=== PATIENT | female | born 1980 | race Caucasian/White ===

== ENCOUNTER → 2021-02-13 16:07 | Outpatient (CLI) | payer OTHER, SELFPAY ==
--- NOTE | ~2021-02-13 | MM_ITS ---
EXAMINATION: MM screening [facility] HISTORY: Screening mammogram TECHNIQUE: Craniocaudal and mediolateral oblique 3-D tomosynthesis images were obtained and synthetic 2-D images were generated. CAD analysis was submitted and interpreted. COMPARISON: 03/06/2013 diagnostic right mammogram and right breast ultrasound examination BREAST PARENCHYMAL COMPOSITION: There are scattered areas of fibroglandular density. FINDINGS: There is no evidence of suspicious mass, calcification, or architectural distortion to sugg est malignancy in either breast. There has been no suspicious interval change. IMPRESSION: 1. No mammographic evidence of malignancy. 2. Recommend routine screening mammography in one year. BI-RADS Category 1: Negative Reviewed, dictated and finalized at location A.
== END ==
PROVIDERS: Visit Provider Nurse Practitioner
DX: Z12.31 Encounter for screening mammogram for malignant neoplasm of breast (principal)
CPT/HCPCS: 77063; 77067

== ENCOUNTER 2021-04-24 14:49 | Outpatient (CLI) | payer OTHER, SELFPAY ==
--- NOTE | 2021-04-24 15:17 | ECG_ITS ---
Measurements Intervals Cook Rate: 65 P: 39 NM: 119 QRS: 41 QRSD: 80 T: -9 QT: 383 QTc: 401 Interpretive Statements SINUS RHYTHM WITH SHORT NM INTERVAL MINIMAL Q WAVES- INFERIOR LEADS NONSPECIFIC T-WAVE ABNORMALITY- ANT/INF LEADS BASELINE ARTIFACT- I, II, AVR, AVF BORDERLINE ECG Electronically Signed On 04-24-2021 15:42:02 [employer] by Teo Jessica D.O.
[2021-04-24 16:02] LABS: Anion Gap 9 mmol/L (8-16); Blood Urea Nitrogen 14 mg/dL (7-17); Carbon Dioxide 33 mmol/L (22-30); Chloride 98 mmol/L (98-107); Estimated Glomerular Filt Rate > 60; Glucose 124 mg/dL (65-110); Potassium 3.6 mmol/L (3.4-5.0); Sodium 140 mmol/L (137-145)
== END 2021-04-24 14:50 | disposition home or self-care (01) ==
PROVIDERS: Anesthesiology; PCP Nurse Practitioner; Visit Provider Surgery Plastic and Reconstructive Surgery
DX: Z01.818 Encounter for other preprocedural examination (principal); E78.5 Hyperlipidemia, unspecified; Z79.899 Other long term (current) drug therapy
CPT/HCPCS: 36415; 80048; 93005

== ENCOUNTER → 2021-04-25 00:32 | Outpatient (CLI) | payer OTHER, SELFPAY ==
[2021-04-25 17:30] LABS: SARS-CoV-2 RNA PCR Negative
== END ==
PROVIDERS: PCP Nurse Practitioner; Visit Provider Surgery Plastic and Reconstructive Surgery
DX: Z01.812 Encounter for preprocedural laboratory examination (principal); Z20.822 Contact with and (suspected) exposure to COVID-19
CPT/HCPCS: C9803; U0003; U0005

== ENCOUNTER 2021-04-28 01:14 | Day surgery (SDC) | payer OTHER, SELFPAY ==
[2021-04-23 11:28] VITALS: BMI 28.1
--- NOTE | 2021-04-23 11:44 | PC.NURSE ---
Report to the Outpatient Waiting Room, entrance under the green pavilion located off [facility], at time 11:30 on date 04/28/21. OR Time: 1:30. - You and your visitor will be asked a series of questions to screen for COVID 19 for your protection. - A mask is required within the hospital. - Only one visitor is allowed at this time. Patient visitors will be guided where to wait when not with patient. Preoperative COVID Testing Requirements: No COVID Test needed if: (proof is required; if not received patient will have Rapid Test prior to entry) - Patient has received COVID Vaccine at least 14 days prior to procedure date or - Patient has positive COVID test result within last 90 days of surgery date. COVID Test needed if above criteria is not met If not COVID vaccinated a COVID test must be conducted within 72 hours of surgery and patient is asked to isolate self from time of testing until procedure. You will go to the [email or web address] for your COVID testing. The [email or web address] is located at the corner of [address] [facility]. COVID TEST 04/25 AT 8:30 You will only be called if COVID results are positive and your surgeon may reschedule your elective surgery date. Patients may have clear liquids (water, carbonated beverages, clear teas, apple juice) until 3 hours prior to surgery with a maximum of 20 ounces. - No food from midnight until time of surgery - Infants may have breast milk until 4 hours before surgery, infant formula 6 hours prior to surgery. - Children will be allowed to drink immediately following surgery. If applicable, please bring a bottle or sippy cup to assist with drinking. Juice, water, soda, and popsicles are readily available. For infants on formula, please bring formula the day of surgery. Pacifiers are allowed. Take the following medications with a SIP of water the morning of surgery: N/A Medications to discontinue per physician: N/A Date to take last dose: N/A Please no make-up, nail malay, hairspray, perfume, deodorant, or body powder the day of surgery. No jewelry (including any body piercings) or valuables the day of surgery, leave them at home. Please take a shower or bath the night before, or the morning of, surgery with an antibacterial soap. Wear comfortable, loose fitting clothing. Children are encouraged to wear pajamas. - Jewelry must be removed prior to entering the operating room. Rings and piercings that are not removed may be cut off. - The hospital will not accept responsibility for valuables. - Please leave all valuables, including medications, at home the day of surgery. If you are going home after surgery, a licensed otr driver must drive you home. - NO public transportation without another adult. - We recommend that an adult stay with you for 24 hours following discharge. - We also recommend that you do not drive, make important decision, drink alcoholic beverages, or take any drugs that were not prescribed by your health care provider for at least 24 hours after your discharge time. For Pediatric surgeries, we recommend two adults accompany the child home (only one inside the building at this time). Follow any additional instructions given to you from your surgeon. Telephone instructions given to SELENA BLACKBURN and asked if any additional questions and then verbalized understanding. Patient advised to call surgeon office or pre surgery nurse liaison [phone] if any additional questions.
[2021-04-28] VITALS (9 sets, daily range): BP systolic 102–140; BP diastolic 65–93; PULSE 68–91; RESP 10–18; TEMP 35.9–36.6; O2SAT 94–100
--- NOTE | 2021-04-28 11:49 | WPDANESEPPF ---
Anes - Initial Pre Proc Eval Procedure: Operation Date: 04/28/21 13:30 Proposed Procedures p Bilateral Breast Reduction - Doug Ennis MD Date/Time: 04/28/21 11:49 Surgeon: Doug Ennis MD Pre Op Diagnosis: macromastia Patient Data Age: 41 Gender: F Height: 1.6 m Weight: 72.12 kg Allergies Allergy/AdvReac Type Severity Reaction Status Date / Time No Known Allergies Allergy Unknown Verified 04/28/21 11:42 Home Medications Medication Instructions Recorded Confirmed Type atorvastatin 20 mg tablet 20 mg PO DAILY 12/29/20 04/23/21 History hydrochlorothiazide 25 mg tablet 25 mg PO DAILY 12/29/20 04/28/21 History hydrocodone 5 mg-acetaminophen 325 1 tablet PO Q6H PRN #15 tablet 04/13/21 04/23/21 Rx mg tablet ondansetron HCl 4 mg tablet 4 mg PO Q6H PRN #30 tablet 04/13/21 04/23/21 Rx Laboratory Tests 04/28/21 11:39 Cotinine Pending Patient hx anesthesia problems: none Family hx anesthesia problems: none Results Review: All pre-operative results and documents have been reviewed as part of the pre-operative evaluation. [facility] Past Medical History Medical History (Updated 04/28/21 @ 11:50 by Eugenio Jones MD) Hypercholesterolemia Hypertension Overweight (BMI 25.0-29.9) Surgical History Surgical History History of tonsillectomy Family History Family History Grandparent Hypertension Social History Social History Smoking status: Never smoker Alcohol intake: current Alcohol use details: 2/MONTH Substance use: never Substance use type: does not use Living arrangements: with family Spiritual care concerns: No Anes - Eval Final PreProcedure Day of Procedure 04/28/21 11:49 Patient weight: overweight Heart: regular rate and rhythm Lungs: clear to auscultation and normal air movement Airway: Mallampati scale class II Neurological: alert and oriented Last oral intake: >/= 8 hours ASA classification: II Emergent: no Anesthetic plan: proceed Anesthesia type and monitoring: general LMA Results Review: All pre-operative results and documents have been reviewed as part of the pre-operative evaluation. Informed Consent: The patient's anesthetic plan and its attendant risks and benefits were discussed with the patient/family/POA. Questions were solicited and answers provided to the satisfaction of the patient/family/POA.
[2021-04-28 11:57] LABS: Urine Cotinine NEGATIVE
[2021-04-28] MEDS: LACTATED RINGERS 1,000 ML 30 ML IV CONT ×2 (12:06→15:08)
--- NOTE | 2021-04-28 12:06 | WPDHPUPDATE1 ---
History and Physical Update Update Date/Time: 04/28/21 12:06 History and Physical has been reviewed, including an updated exam of the patient. There are NO changes in the patient's condition. Risks, benefits, and alternatives have been discussed and questions answered. Patient agrees to proceed with procedure.
--- NOTE | 2021-04-28 12:28 | P.OP_ITS ---
Procedure Note - Detailed Date of Procedure 04/28/21 Pre-op Diagnosis macromastia Post-op Diagnosis same Procedure Performed Bilateral reduction mammaplasty Surgeon Doug Ennis MD Anesthesia general Findings Inverted T Free nipple graft Tissue removed: Right - 827 grams Left - 637 grams Description of Procedure She is here today for bilateral breast reduction. Previously and again today the risks, benefits, alternatives were discussed in extensive detail. I wanted her to be very realistic about the risks involved as well as expectations. She wants to proceed with free nipple graft understanding all her options clearly. We discussed aftercare and what to monitor for. She understands we can never guarantee final breast size and there will always be asymmetry. I was very upfront and honest about the risks of sensation change and even nipple loss (). Made sure answered all of her questions to her satisfaction today and consent was obtained. She was marked in the preoperative holding area with their verification. The patient was taken to the operating room placed supine on the operating table. Anesthesia was provided by anesthesiology. She was prepped and draped in a standard sterile fashion. A surgical time-out was taken. Stab incisions were made and I tumessed with a tumescent solution. I marked out the nipple-areolar complex at 42 mm and this was excised. NAC was kept in moist gauze on the back table.I then removed the inferior portion of the breast as well as the central keel to get shape based on preoperative planning. At this point copiously irrigated with saline solution and verified a strict hemostasis. I reapproximated the pillars using a 2-0 PDS. I tailor tacked the breast into place with surjit. She was placed in a sitting position. I verified the nipple-areolar complex position based on preoperative markings, intraoperative measurements, and observation which were in full agreement. This nipple-areolar complex was marked at 42 mm in size. The NAC was defatted and recipient site deepit helialized. I inset with 5-0 Chromic and created a tie over bolster with xeroform, cotton, and 3-0 Nylon. I closed IMF deep with 1 strattafix. I closed the vertical incision with 3-0 Monocryl in the IMF with 3-0 stratafix. Then everything was closed using a running subcuticular 4-0 Monocryl followed by Steri-Strips. A dressing was placed followed by surgical bra. Patient was awoke and taken to PACU without difficulty. All instrument sponge counts were correct at the end of the case. Estimated Blood Loss 40 Drains No Packing No Pathology yes (Bilateral breast tissue) Complications No immediate complications Condition stable Disposition PACU
[2021-04-28] MEDS: ceFAZolin 2 GM/D5W 50 ML 2 GM/50 ML BAG IVPB (12:45)
[2021-04-28] MEDS: TRANEXAMIC ACID 1,000MG/ISO100 1,000 MG/100 ML BAG 200 MG IVPB (12:58)
[2021-04-28] MEDS: LACTATED RINGERS IRRIG 1,000 ML, LIDOCAINE HCL 1% LOCAL INJ 50 ML, EPINEPHrine HCL INJ ... INFILTRATE (13:15)
[2021-04-28] MEDS: fentaNYL CITRATE INJ (*CRX) 100 MCG/2 ML VIAL 25 MCG IV PUSH ×4 (15:47→16:01)
[2021-04-28] MEDS: oxyCODONE HCL (*CRX) 5 MG TAB IR PO (16:32)
== END 2021-04-28 17:05 | disposition home or self-care (01) ==
PROVIDERS: PCP Nurse Practitioner; Visit Provider Surgery Plastic and Reconstructive Surgery
PROC: 0HBV0ZZ Excision of Bilateral Breast, Open Approach (ICD-10-PCS; CPT 19318; principal; 2021-04-28 13:30)
DX: N62 Hypertrophy of breast (principal); N60.32 Fibrosclerosis of left breast; N60.31 Fibrosclerosis of right breast; N60.42 Mammary duct ectasia of left breast; N60.41 Mammary duct ectasia of right breast; M54.9 Dorsalgia, unspecified; G89.29 Other chronic pain; M54.2 Cervicalgia; L30.4 Erythema intertrigo; N64.4 Mastodynia; I10 Essential (primary) hypertension; E78.00 Pure hypercholesterolemia, unspecified; Z79.899 Other long term (current) drug therapy
CPT/HCPCS: 19318; 36415; 80048; 80307; 88305; 93005; A9270; C9803; J0171; J0690; J1100; J1170; J2250; J2405; J2704; J3010; J7120; U0003; U0005

== ENCOUNTER 2025-03-28 12:33 | Outpatient (CLI) | payer OTHER, SELFPAY ==
--- NOTE | ~2025-03-28 | XR_ITS ---
EXAMINATION: XR chest 2V, 03/28/2025 13:00 CDT HISTORY: chronic cough COMPARISON: No comparisons available. Technique: 2 views obtained. Findings: The lungs are clear, no effusion. No pneumothorax. Heart is normal size. Mediastinal and hilar contours are within normal limits. Bony thorax no acute abnormality. Impression: No acute cardiopulmonary abnormality. Reviewed, dictated and finalized at location P. Impression: No acute cardiopulmonary abnormality.
== END 2025-03-28 12:34 | disposition home or self-care (01) ==
LOC: MICIMG 12:37
PROVIDERS: PCP Nurse Practitioner; Visit Provider Nurse Practitioner
DX: R05.3 Chronic cough (principal)
CPT/HCPCS: 71046